=== PATIENT | female | born 1970 | race Two or more races ===

== ENCOUNTER 2017-01-14 13:30 | Emergency (ER) | payer MEDICAID ==
[~2017-01-14] VITALS: Ht 157.5 cm; Wt 74.8 kg
[2017-01-14 13:30] VITALS: BP 64/18
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
== END 2017-01-14 14:27 | disposition home or self-care (01) ==
LOC: ER 13:39
DX: S40.022A Contusion of left upper arm, initial encounter (principal); R45.6 Violent behavior; X58.XXXA Exposure to other specified factors, initial encounter; Y93.89 Activity, other specified; Y92.89 Other specified places as the place of occurrence of the external cause; Y99.9 Unspecified external cause status
CPT/HCPCS: 99281; A4606; Z7610; Z7502

== ENCOUNTER 2017-01-22 18:07 | Emergency (ER) | payer MEDICAID ==
[~2017-01-22] VITALS: Ht 162.6 cm; Wt 74.8 kg
[2017-01-22 18:14] VITALS: BP 126/81
[2017-01-22] MEDS ORDERED: IV NS 0.9% 1,000 ML BAG IV ONE (18:30)
[2017-01-22] MEDS ORDERED: MORPHINE SULFATE INJ 2 MG/ML DISP.SYRIN IV ONE (18:30)
[2017-01-22] MEDS ORDERED: ONDANSETRON HCL/PF 4 MG/2 ML VIAL IVP ONE (18:30)
--- NOTE | 2017-01-22 18:30 | NUR ---
PATIENT ARRIVED TO ER WITH C/O UTI SYMPTOMS. PATIENTS VITALS REMAIN WNL. A/OX 4. NO FEVER. NO SOB. SAFETY AND COMFORT MEASURES IN PLACE. AWAITING MD ORDERS.
[2017-01-22 18:49] LABS: APPEARANCE,URINE Slightly Cloudy (CLEAR); BILIRUBIN,URINE Negative (NEGATIVE); BLOOD, URINE Moderate Ery/uL (NEGATIVE); COLOR,URINE Yellow (YELLOW); KETONES,URINE Negative (NEGATIVE); LEUKOCYTE ESTERASE ,URINE Large (NEGATIVE); NITRITE, URINE Negative (NEGATIVE); PH,URINE 6.5 (5.0-8.0); PROTEIN,URINE 100 mg/dl (NEGATIVE); UGLUCOSE Negative (NEGATIVE); UROBILINOGEN,URINE 0.2 EU/dL (0.2)
--- NOTE | 2017-01-22 18:50 | NUR ---
URINE COLLECTED AND SENT TO LAB FOR TESTING.
[2017-01-22 18:51] LABS: PREGNANCY TEST URINE QUAL NEGATIVE (NEGATIVE)
[2017-01-22] MEDS ORDERED: PHENAZOPYRIDINE HCL 200 MG TABLET ONE (19:00)
[2017-01-22] MEDS ORDERED: NITROFURANTOIN/NITROFURAN MAC 100 MG CAPSULE PO ONE (19:00)
[2017-01-22] MEDS ORDERED: PHENAZOPYRIDINE HCL 200 MG TABLET PO ONE (19:00)
[2017-01-22] MEDS ORDERED: NITROFURANTOIN/NITROFURAN MAC 100 MG CAPSULE ONE (19:00)
[2017-01-22 19:58] LABS: BACTERIA,URINE Moderate /HPF (None Seen); SQUAMOUS EPITHELIAL CELL,UR Moderate /HPF (None Seen)
== END 2017-01-22 19:06 | disposition home or self-care (01) ==
LOC: ER 18:08
DX: N39.0 Urinary tract infection, site not specified (principal)
CPT/HCPCS: 81000-TC; 84703-TC; 87086-TC; 87186-TC; A4606; Z7610

== ENCOUNTER 2017-12-05 10:28 | Emergency (ER) | payer MEDICAID, OTHER ==
[~2017-12-05] VITALS: Ht 165.1 cm; Wt 74.8 kg
[2017-12-05 12:04] LABS: BASOPHILS % (AUTO) 0.7 % (0.0-2.0); EOSINOPHILS % (AUTO) 2.4 % (0.0-6.0); HEMATOCRIT 41 % (33-45); HEMOGLOBIN 13.9 g/dL (11.5-14.8); LYMPHOCYTES # (AUTO) 1.8 /CMM (0.8-4.8); LYMPHOCYTES % (AUTO) 26.6 % (20.0-44.0); MEAN CORPUSCULAR HGB CONC 34 g/dl (31.0-36.0); MEAN CORPUSCULAR VOLUME 91 fL (82-100); MONOCYTES # (AUTO) 0.5 /CMM (0.1-1.30); MONOCYTES % (AUTO) 7.1 % (2.0-12.0); NEUTROPHILS # (AUTO) 4.3 /CMM (1.8-8.9); NEUTROPHILS % (AUTO) 63.2 % (43.0-81.0); RDW COEFFICIENT OF VARIATION 12.4 (11.5-15.0); RED BLOOD CELL COUNT(AUTO) 4.48 MIL/uL (4.0-5.2); WHITE BLOOD COUNT (AUTO) 6.8 K/uL (4.3-11.0)
[2017-12-05 12:11] LABS: CALCIUM, SERUM 8.4 mg/dL (8.5-10.1); CREATININE 0.8 mg/dL (0.6-1.3); INR 0.95 (0.85-1.15); POTASSIUM 3.9 mmol/L (3.5-5.1)
[2017-12-05 12:21] LABS: PLATELET COUNT (AUTO) 330 /CMM (150-450)
[2017-12-05] MEDS ORDERED: ACETAMINOPHEN 325 MG TABLET ONE (13:34)
[2017-12-05 13:41] VITALS: BP 130/78
[2017-12-05] MEDS ORDERED: ACETAMINOPHEN 650 MG/20.3 ML UDC PO ONE (14:00)
== END 2017-12-05 13:41 | disposition home or self-care (01) ==
LOC: ER 10:31
DX: N93.8 Other specified abnormal uterine and vaginal bleeding (principal)
CPT/HCPCS: 36415; 80048-TC; 84443-TC; 84703-TC; 85025-TC; 85610-TC; A4606; Z7610

== ENCOUNTER 2022-02-18 00:55 | Emergency (ER) | payer OTHER ==
[~2022-02-18] VITALS: Ht 165.1 cm; Wt 90.3 kg
[2022-02-18 01:19] VITALS: BP 147/70
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
[2022-02-18] MEDS ORDERED: NAPROXEN 250 MG TABLET ONE (02:16)
--- NOTE | 2022-02-18 02:17 | NUR ---
RAD AT BED SIDE
[2022-02-18] MEDS ORDERED: NAPROXEN 250 MG TABLET PO ONE (02:30)
[2022-02-18] MEDS ORDERED: NAPR-1192 PO (02:57)
== END 2022-02-18 03:34 | disposition home or self-care (01) ==
LOC: ER 00:55
DX: S93.492A Sprain of other ligament of left ankle, initial encounter (principal); Z98.890 Other specified postprocedural states; W01.0XXA Fall on same level from slipping, tripping and stumbling without subsequent striking against object, initial encounter; Y93.89 Activity, other specified; Y92.89 Other specified places as the place of occurrence of the external cause; Y99.8 Other external cause status
CPT/HCPCS: 73610-TC